=== PATIENT | male | born 1970 | race Caucasian/White ===

== ENCOUNTER → 2020-12-12 | Day surgery (SDC) | payer OTHER ==
[~2020-12-12] MED LIST: BACLOFEN 10MG T10 MG PO; ETODOLAC500 MG PO; FLONASE ALLER15.8 ML; NORCO 5-325 TA1 EACH PO; OMEPRAZOLE40 MG PO; TOPROL XL 25MG25 MG PO; VOLTAREN **OUT75 MG PO
[2020-12-12 10:43] LABS: HCT 53.7 % (42.0-52.0); HGB 17.9 g/dl (13.2-18.0); MCH 31.2 pg (25.0-31.0); MCHC 33.3 g/dL (32.0-36.0); MCV 93.7 fL (78.0-100.0); MPV 8.3 fL (6.0-9.5); RBC 5.73 M/uL (4.70-6.00); RDW 13.1 % (11.5-14.0); WBC 5.4 K/uL (4.0-10.5)
[2020-12-12 11:16] LABS: ALBUMIN 3.6 g/dL (3.4-5.0); BILIRUBIN - TOTAL 0.5 mg/dL (0.2-1.0); BUN/CREAT RATIO (CALC) 15.2 RATIO; CREATININE 0.99 mg/dL (0.67-1.17); GLOBULIN (CALCULATION) 3.8 g/dL; POTASSIUM 4.2 mmol/L (3.5-5.1); TOTAL PROTEIN 7.4 g/dL (6.4-8.2)
== END | disposition home or self-care (01) ==
LOC: FAS 09:08 → EDSTATUS 09:30 → FIS 09:30
PROVIDERS: Surgery
DX: K44.9 Diaphragmatic hernia without obstruction or gangrene (principal); K20.90 Esophagitis, unspecified without bleeding; K29.70 Gastritis, unspecified, without bleeding; K29.80 Duodenitis without bleeding; N20.0 Calculus of kidney; I10 Essential (primary) hypertension; F10.20 Alcohol dependence, uncomplicated; G47.30 Sleep apnea, unspecified; Z82.49 Family history of ischemic heart disease and other diseases of the circulatory system; Z88.0 Allergy status to penicillin
CPT/HCPCS: 36415; 76705; 80053; J2704; J7120